=== PATIENT | male | born 1945 | race Caucasian/White ===

== ENCOUNTER 2018-01-15 00:20 | Emergency (ER) | payer OTHER ==
[2018-01-15] MEDS ORDERED: MORPHINE SULFATE 2 MG/ML SYR ONE ×2 (02:01→03:35)
[2018-01-15] MEDS ORDERED: MORPHINE SULFATE 2 MG/ML SYR IV STA ×2 (02:04→03:31)
[2018-01-15] MEDS ORDERED: FENTANYL 25 MCG/HR PATCH TOP SCH (05:00)
[2018-01-15 05:38] VITALS: BP 54/35
== END 2018-01-15 06:10 | disposition home or self-care (01) ==
LOC: ER 00:20
DX: R50.9 Fever, unspecified (principal); R65.21 Severe sepsis with septic shock; R41.82 Altered mental status, unspecified; R40.20 Unspecified coma; I95.0 Idiopathic hypotension; I50.9 Heart failure, unspecified; Z66 Do not resuscitate; I10 Essential (primary) hypertension; J44.9 Chronic obstructive pulmonary disease, unspecified; Z86.73 Personal history of transient ischemic attack (TIA), and cerebral infarction without residual deficits
CPT/HCPCS: 96374; 99284; J2270